=== PATIENT | female | born 1965 | race Caucasian/White ===

== ENCOUNTER 2019-05-14 08:58 | Day surgery (SDC) | payer OTHER ==
[2019-05-14] MEDS ORDERED: MIDAZOLAM 1 MG/ML 2 ML INJ ×2 (10:52)
[2019-05-14] MEDS ORDERED: FENTAnyl 50 MCG/ML VIAL (10:53)
== END 2019-05-14 12:01 | disposition home or self-care (01) ==
LOC: GIL 08:58
DX: Z12.11 Encounter for screening for malignant neoplasm of colon (principal); D12.4 Benign neoplasm of descending colon; K64.9 Unspecified hemorrhoids; K57.31 Diverticulosis of large intestine without perforation or abscess with bleeding
CPT/HCPCS: 45385; 88305